=== PATIENT | male | born 1955 | race Caucasian/White ===

== ENCOUNTER 2019-06-13 00:29 | Emergency (ER) | payer MEDICARE ==
[~2019-06-13] VITALS: Ht 175.3 cm; Wt 65.9 kg
[~2019-06-13 00:29] MED LIST: ASPI-496 PO; ATOR40TA78 PO; FERR-51 PO; FOLI-17 PO; LOPE2CAP PO; MULT1TAB60 PO; PANT40TA5 PO; PHOS250T3 PO; THIA100T67 PO
--- NOTE | 2019-06-13 00:47 | NUR ---
Pt arrives via [facility] for SOB. Pt reports cough and SOB that gets worse with the weather. Pt takes vitamins and aspirin. Pt is alert and oriented. NAD. Pt on room air, no increased WOB noted. Lungs clear. Pt in gown. Call light within reach.
--- NOTE | 2019-06-13 01:06 | NUR ---
Lab at bedside for draw. Warm blanket provided. Urinal provided.
[2019-06-13 01:09] LABS: BASOPHILS # (AUTO) 0.16 x10^3/uL (0-0.1); BASOPHILS % (AUTO) 2 % (0-1); EOSINOPHILS # (AUTO) 0.02 x10^3/uL (0-0.4); EOSINOPHILS % (AUTO) 0 % (1-7); LYMPHOCYTES # (AUTO) 1.88 x10^3/uL (1-3.4); LYMPHOCYTES % (AUTO) 18 % (22-44); MD NO; MEAN CORPUSCULAR HEMOGLOBIN 35.1 pg (27.5-34.5); MEAN CORPUSCULAR HGB CONC 33.7 g/dL (33.2-36.2); MEAN CORPUSCULAR VOLUME 104.4 fL (81-97); MEAN PLATELET VOLUME 6.8 fL (7.4-10.4); MONOCYTES # (AUTO) 0.67 x10^3/uL (0.2-0.8); MONOCYTES % (AUTO) 6 % (2-9); NEUTROPHILS # (AUTO) 7.95 x10^3/uL (1.8-6.8); NEUTROPHILS % (AUTO) 75 % (42-75); PLATELET COUNT 501 x10^3/uL (130-400); RED BLOOD COUNT 3.28 x10^6/uL (4.38-5.82)
[2019-06-13 01:19] LABS: ANION GAP 9 mmol/L (5-15); CALCIUM 9.2 mg/dL (8.5-10.1); CHLORIDE 103 mmol/L (98-107)
[2019-06-13 01:42] VITALS: BP 103/67
--- NOTE | 2019-06-13 01:47 | NUR ---
Pt given bus pass for d/c. Pt states "I didn't know the ER sent people home in the middle of the night".
--- NOTE | 2019-06-13 02:08 | NUR ---
Pt alert and ambulatory at time of d/c. Pt edcuated on prescription, home-care, and follow-up. Pt VU. Pt ambulated out of ER.
== END 2019-06-13 02:11 | disposition home or self-care (01) ==
LOC: ED 02:00
DX: R05 Cough (principal); F17.200 Nicotine dependence, unspecified, uncomplicated; Z59.0 Homelessness
CPT/HCPCS: 36415; 71045; 80048; 80307; 85025; 99284

== ENCOUNTER 2019-06-13 17:42 | Emergency (ER) | payer MEDICARE ==
[~2019-06-13] VITALS: Ht 175.3 cm; Wt 65.0 kg
--- NOTE | 2019-06-13 18:15 | NUR ---
PT ALERT AND ORIENTED. SMALL ABRASION ON SCALP. AWAITING CT
--- NOTE | 2019-06-13 18:46 | NUR ---
CT COMPLETED AND RESTING QUIETLY
--- NOTE | 2019-06-13 19:12 | NUR ---
REPORT FROM ZION COWAN. ASSUMING CARE OF PT AT THIS TIME.
--- NOTE | 2019-06-13 19:13 | NUR ---
ALL RESULTS BACK CHART UP FOR RECHECK AWAITING FURTHER ORDERS AT THIS TIME
[2019-06-13 19:19] VITALS: BP 109/59
== END 2019-06-13 20:32 | disposition home or self-care (01) ==
LOC: ED 20:00
DX: R51 Headache (principal); W19.XXXA Unspecified fall, initial encounter; Y93.89 Activity, other specified; Y92.488 Other paved roadways as the place of occurrence of the external cause; Y99.8 Other external cause status
CPT/HCPCS: 70450; 99284

== ENCOUNTER 2019-07-02 21:07 | Emergency (ER) | payer MEDICARE ==
[~2019-07-02] VITALS: Ht 175.3 cm; Wt 67.0 kg
[2019-07-02 22:02] LABS: BASOPHILS # (AUTO) 0.03 x10^3/uL (0-0.1); BASOPHILS % (AUTO) 0 % (0-1); EOSINOPHILS # (AUTO) 0.01 x10^3/uL (0-0.4); EOSINOPHILS % (AUTO) 0 % (1-7); LYMPHOCYTES # (AUTO) 1.09 x10^3/uL (1-3.4); LYMPHOCYTES % (AUTO) 9 % (22-44); MD NO; MEAN CORPUSCULAR HEMOGLOBIN 34.1 pg (27.5-34.5); MEAN CORPUSCULAR HGB CONC 33.8 g/dL (33.2-36.2); MEAN CORPUSCULAR VOLUME 100.9 fL (81-97); MEAN PLATELET VOLUME 6.4 fL (7.4-10.4); MONOCYTES # (AUTO) 1.05 x10^3/uL (0.2-0.8); MONOCYTES % (AUTO) 9 % (2-9); NEUTROPHILS % (AUTO) 82 % (42-75); PLATELET COUNT 371 x10^3/uL (130-400); RED CELL DISTRIBUTION WIDTH 14.4 % (9.4-14.8)
[2019-07-02 22:11] LABS: ALBUMIN 1.9 g/dL (3.4-5.0); ANION GAP 9 mmol/L (5-15); CALCIUM 8.1 mg/dL (8.5-10.1); CHLORIDE 100 mmol/L (98-107); CREATININE 0.35 mg/dL (0.7-1.3)
[2019-07-02 22:15] LABS: TROPONIN I < 0.015 ng/mL (0.000-0.045)
[2019-07-02] MEDS ORDERED: DOXYCYCLINE 100MG TABLET ONE (22:47)
[2019-07-02] MEDS ORDERED: POTASSIUM CHLORIDE 20 MEQ TAB.ER.PRT ONE (22:47)
[2019-07-02 22:53] VITALS: BP 111/70
[2019-07-02] MEDS ORDERED: DOXYCYCLINE 100MG TABLET PO ONE (23:00)
[2019-07-02] MEDS ORDERED: POTASSIUM CHLORIDE 20 MEQ TAB.ER.PRT PO ONE (23:00)
== END 2019-07-02 23:19 | disposition home or self-care (01) ==
LOC: ED 23:08
DX: J18.9 Pneumonia, unspecified organism (principal); E87.6 Hypokalemia; F17.200 Nicotine dependence, unspecified, uncomplicated; R00.0 Tachycardia, unspecified
CPT/HCPCS: 36415; 71045; 80048; 82040; 84484; 85025; 93005; 99285

== ENCOUNTER 2019-07-28 02:09 | Emergency (ER) | payer MEDICARE ==
[~2019-07-28] VITALS: Ht 172.7 cm; Wt 67.0 kg
[2019-07-28 02:15] VITALS: BP 118/70
[2019-07-28] MEDS ORDERED: ACETAMINOPHEN 500 MG TABLET ONE (02:45)
--- NOTE | 2019-07-28 02:53 | NUR ---
PT SPIT PILLS OUT ONTO FLOOR
[2019-07-28] MEDS ORDERED: ACETAMINOPHEN 500 MG TABLET PO ONE (03:00)
--- NOTE | 2019-07-28 03:11 | NUR ---
PT PROVIDED WITH CAB VOUCHER BACK TO [facility].
== END 2019-07-28 03:14 | disposition home or self-care (01) ==
LOC: ED 03:08
DX: G89.29 Other chronic pain (principal); M79.662 Pain in left lower leg; M79.661 Pain in right lower leg; E87.6 Hypokalemia; F17.200 Nicotine dependence, unspecified, uncomplicated
CPT/HCPCS: 99282; 99283

== ENCOUNTER 2019-08-08 07:38 | Inpatient (IN) | payer MEDICARE ==
[~2019-08-08] VITALS: Ht 177.8 cm; Wt 73.0 kg
--- NOTE | 2019-08-08 08:33 | NUR ---
PT IN RADIOLOGY
--- NOTE | 2019-08-08 09:58 | NUR ---
PT RESTING IN [facility], ADDITIONAL LABS AND RAD ORDERED. CALL LIGHT WTHIN REACH
[2019-08-08 10:09] LABS: BASOPHILS # (AUTO) 0.02 x10^3/uL (0-0.1); BASOPHILS % (AUTO) 0 % (0-1); EOSINOPHILS # (AUTO) 0.06 x10^3/uL (0-0.4); EOSINOPHILS % (AUTO) 1 % (1-7); LYMPHOCYTES # (AUTO) 0.86 x10^3/uL (1-3.4); LYMPHOCYTES % (AUTO) 16 % (22-44); MD NO; MEAN CORPUSCULAR HEMOGLOBIN 32.3 pg (27.5-34.5); MEAN CORPUSCULAR HGB CONC 32.6 g/dL (33.2-36.2); MEAN CORPUSCULAR VOLUME 99.1 fL (81-97); MEAN PLATELET VOLUME 6.1 fL (7.4-10.4); MONOCYTES # (AUTO) 0.62 x10^3/uL (0.2-0.8); MONOCYTES % (AUTO) 12 % (2-9); NEUTROPHILS # (AUTO) 3.79 x10^3/uL (1.8-6.8); NEUTROPHILS % (AUTO) 71 % (42-75); PLATELET COUNT 234 x10^3/uL (130-400); RED BLOOD COUNT 3.63 x10^6/uL (4.38-5.82); RED CELL DISTRIBUTION WIDTH 16.6 % (9.4-14.8)
[2019-08-08 10:20] LABS: ALANINE AMINOTRANSFERASE 13 U/L (12-78); ALBUMIN 2.2 g/dL (3.4-5.0); ANION GAP 8 mmol/L (5-15); CALCIUM 8.2 mg/dL (8.5-10.1); CHLORIDE 105 mmol/L (98-107); CREATININE 0.68 mg/dL (0.7-1.3)
[2019-08-08 10:24] LABS: ALKALINE PHOSPHATASE 118 U/L (45-117); BILIRUBIN,TOTAL 0.2 mg/dL (0.2-1.0); TOTAL PROTEIN 5.7 g/dL (6.4-8.2)
[2019-08-08] MEDS ORDERED: SODIUM CHLORIDE FLUSH 10ML SYR IVF ONE (11:00)
[2019-08-08] MEDS ORDERED: POTASSIUM CHLORIDE 40 MEQ in SODIUM CHLORIDE 0.9% 500 ML IV ONE (11:00)
--- NOTE | 2019-08-08 11:32 | NUR ---
IV ESTABLISHED AND [facility] INFUSING @130 ML/H, PT TO BE ADMITTED
[2019-08-08] MEDS ORDERED: PROMETHAZINE 25 MG/ML, 1ML IM PRN (12:00)
[2019-08-08] MEDS ORDERED: ONDANSETRON 2MG/ML, 2ML IVPush PRN (12:00)
[2019-08-08] MEDS ORDERED: LABETALOL 5MG/ML, 20ML IVPush PRN (12:00)
[2019-08-08] MEDS ORDERED: ACETAMINOPHEN 325 MG TABLET PO PRN (12:00)
[2019-08-08] MEDS ORDERED: hydrALAzine 20 MG/ML, 1ML IVPush PRN (12:00)
--- NOTE | 2019-08-08 13:11 | NUR ---
PT RESTING IN [facility], AWAITNIG BED ASSIGNMENT.
[2019-08-08] MEDS ORDERED: NICOTINE 14MG/24 HR PATCH.TD24 ONE (14:51)
[2019-08-08] MEDS ORDERED: HEPARIN 5,000 UNITS/ML, 1ML ONE (14:51)
[2019-08-08] MEDS: HEPARIN 5,000 UNITS/ML, 1ML SQ SCH ×2 (14:57→23:07)
[2019-08-08] MEDS: MULTIVITAMIN 1 TABLET PO SCH (14:57)
[2019-08-08] MEDS: FOLIC ACID 1 MG TABLET PO SCH (14:57)
[2019-08-08] MEDS: THIAMINE 100MG TABLET PO SCH (14:57)
[2019-08-08] MEDS ORDERED: NICOTINE 7 MG/24 HR PATCH.TD24 ONE (15:03)
[2019-08-08 15:23] VITALS: BP 119/63
[2019-08-08] MEDS ORDERED: AMPICILLIN/SULBACTAM 1,500 MG in SODIUM CHLORIDE 0.9% 50 ML IV SCH (15:30)
[2019-08-08] MEDS ORDERED: NS + 20MEQ KCL 1,000 ML IV SCH (15:30)
[2019-08-08] MEDS: NICOTINE 7 MG/24 HR PATCH.TD24 TD SCH (16:01)
[2019-08-08] MEDS ORDERED: MEROPENEM 1 GM in SODIUM CHLORIDE 0.9% 100 ML IV SCH (16:30)
[2019-08-08] MEDS: POTASSIUM CHLORIDE 20 MEQ TAB.ER.PRT PO SCH (16:49)
[2019-08-08 18:52] VITALS: BP 123/75
[2019-08-08 20:34] LABS: HCT (SEDRATE) 33.3 % (39.2-51.8)
[2019-08-08 20:49] LABS: ANION GAP 5 mmol/L (5-15); CHLORIDE 108 mmol/L (98-107)
[2019-08-08 20:56] LABS: CREATININE 0.48 mg/dL (0.7-1.3)
[2019-08-08] MEDS: CLINDAMYCIN PMX 600MG/50ML 50 ML IV SCH (21:05)
[2019-08-09 00:02] VITALS: BP 119/71
[2019-08-09] MEDS: CLINDAMYCIN PMX 600MG/50ML 50 ML IV SCH ×4 (02:12→20:06)
[2019-08-09 05:39] LABS: BASOPHILS # (AUTO) 0.02 x10^3/uL (0-0.1); BASOPHILS % (AUTO) 0 % (0-1); EOSINOPHILS # (AUTO) 0.06 x10^3/uL (0-0.4); EOSINOPHILS % (AUTO) 1 % (1-7); LYMPHOCYTES # (AUTO) 0.88 x10^3/uL (1-3.4); LYMPHOCYTES % (AUTO) 15 % (22-44); MD NO; MEAN CORPUSCULAR HEMOGLOBIN 32.3 pg (27.5-34.5); MEAN CORPUSCULAR VOLUME 97.7 fL (81-97); MEAN PLATELET VOLUME 6.6 fL (7.4-10.4); MONOCYTES # (AUTO) 0.44 x10^3/uL (0.2-0.8); MONOCYTES % (AUTO) 7 % (2-9); NEUTROPHILS # (AUTO) 4.58 x10^3/uL (1.8-6.8); NEUTROPHILS % (AUTO) 77 % (42-75); PLATELET COUNT 212 x10^3/uL (130-400); RED BLOOD COUNT 3.33 x10^6/uL (4.38-5.82); RED CELL DISTRIBUTION WIDTH 16.4 % (9.4-14.8)
[2019-08-09 05:48] LABS: ALANINE AMINOTRANSFERASE 9 U/L (12-78); ALBUMIN 1.9 g/dL (3.4-5.0); ANION GAP 5 mmol/L (5-15); CHLORIDE 108 mmol/L (98-107)
[2019-08-09 05:50] LABS: ALKALINE PHOSPHATASE 81 U/L (45-117); BILIRUBIN,TOTAL 0.2 mg/dL (0.2-1.0); TOTAL PROTEIN 5.3 g/dL (6.4-8.2)
[2019-08-09 07:42] VITALS: BP 103/62
[2019-08-09] MEDS: HEPARIN 5,000 UNITS/ML, 1ML SQ SCH ×3 (07:50→22:31)
[2019-08-09] MEDS: FOLIC ACID 1 MG TABLET PO SCH (09:05)
[2019-08-09] MEDS: POTASSIUM CHLORIDE 20 MEQ TAB.ER.PRT PO SCH ×2 (09:05→16:23)
[2019-08-09] MEDS: THIAMINE 100MG TABLET PO SCH (09:06)
[2019-08-09] MEDS: MULTIVITAMIN 1 TABLET PO SCH (09:06)
[2019-08-09 14:16] VITALS: BP 103/64
[2019-08-09] MEDS: NICOTINE 7 MG/24 HR PATCH.TD24 TD SCH (16:23)
[2019-08-09 19:37] VITALS: BP 90/57
[2019-08-10 02:16] VITALS: BP 116/66
[2019-08-10] MEDS: CLINDAMYCIN PMX 600MG/50ML 50 ML IV SCH ×3 (02:19→14:00)
[2019-08-10 08:00] VITALS: BP 88/54
[2019-08-10] MEDS: FOLIC ACID 1 MG TABLET PO SCH (08:28)
[2019-08-10] MEDS: THIAMINE 100MG TABLET PO SCH (08:28)
[2019-08-10] MEDS: MULTIVITAMIN 1 TABLET PO SCH (08:28)
[2019-08-10] MEDS: POTASSIUM CHLORIDE 20 MEQ TAB.ER.PRT PO SCH ×2 (08:28→16:52)
[2019-08-10] MEDS: HEPARIN 5,000 UNITS/ML, 1ML SQ SCH ×2 (08:28→15:00)
[2019-08-10 12:15] VITALS: BP 107/67
[2019-08-10] MEDS ORDERED: SULF1TAB24 PO (14:54)
[2019-08-10] MEDS: NICOTINE 7 MG/24 HR PATCH.TD24 TD SCH (16:52)
== END 2019-08-10 17:36 | disposition home or self-care (01) | DRG 602 ==
LOC: ED 09:11 → EDIP 11:33 → 4WST 14:32
PROVIDERS: ADMIT Internal Medicine; ATTEND Internal Medicine
DX: L03.115 Cellulitis of right lower limb (principal); E43 Unspecified severe protein-calorie malnutrition; L03.116 Cellulitis of left lower limb; E87.6 Hypokalemia; E88.09 Other disorders of plasma-protein metabolism, not elsewhere classified; I25.10 Atherosclerotic heart disease of native coronary artery without angina pectoris; Z72.89 Other problems related to lifestyle; W10.1XXA Fall (on)(from) sidewalk curb, initial encounter; R73.9 Hyperglycemia, unspecified; M16.11 Unilateral primary osteoarthritis, right hip; Z91.14 Patient's other noncompliance with medication regimen; Z71.6 Tobacco abuse counseling; F17.200 Nicotine dependence, unspecified, uncomplicated
CPT/HCPCS: 36415; 71045; 80048; 80053; 80307; 83036; 83735; 83880; 84145; 85025; 85651; 86140; 86803; 87040; 87340; 87806; 93005; 93970; 96374; G0378; J1644; J2185; J3480; G0475; J7040

== ENCOUNTER 2019-08-10 20:17 | Emergency (ER) | payer MEDICARE ==
[~2019-08-10] VITALS: Ht 177.8 cm; Wt 70.0 kg
[~2019-08-10 20:17] MED LIST changes: +SULF1TAB24 PO
[2019-08-10 20:20] VITALS: BP 110/59
== END 2019-08-10 20:44 ==
LOC: ED 20:40
DX: M25.551 Pain in right hip (principal); G89.29 Other chronic pain; X58.XXXA Exposure to other specified factors, initial encounter; Y93.89 Activity, other specified; Y92.89 Other specified places as the place of occurrence of the external cause; Y99.8 Other external cause status
CPT/HCPCS: 99283

== ENCOUNTER 2019-08-11 02:55 | Emergency (ER) | payer MEDICARE ==
[~2019-08-11] VITALS: Ht 177.8 cm; Wt 74.0 kg
[2019-08-11 02:56] VITALS: BP 142/88
== END 2019-08-11 03:20 | disposition left against medical advice (07) ==
LOC: ED 03:14
DX: M25.559 Pain in unspecified hip (principal); Z53.21 Procedure and treatment not carried out due to patient leaving prior to being seen by health care provider

== ENCOUNTER 2019-08-20 14:22 | Emergency (ER) | payer MEDICARE ==
[~2019-08-20] VITALS: Ht 177.8 cm; Wt 72.7 kg
--- NOTE | 2019-08-20 14:47 | NUR ---
BEDSIDE REPORT FROM PABLO COWAN, PT RESTING IN [facility] ON MONITOR. CALL LIGHT WITHIN REACH.
[2019-08-20 16:45] VITALS: BP 131/67
--- NOTE | 2019-08-20 17:01 | NUR ---
PT REQUESTING TO SPEAK TO MD ABOUT LEGS, MD TO BEDSIDE TO ASSESS PTS LEGS. PER MD NO TREATMENT REQUIRED AT THIS TIME. PT VERY UPSET AND BEGAN YELLING AT RN. PT GOT DRESSED AND RN TO GIVE PT TAXI VOUCHER.
--- NOTE | 2019-08-20 17:21 | NUR ---
PT GIVEN TAXI VOUCHER
== END 2019-08-20 17:24 | disposition home or self-care (01) ==
LOC: ED 15:42
DX: B34.9 Viral infection, unspecified (principal); F17.200 Nicotine dependence, unspecified, uncomplicated; I45.2 Bifascicular block; I25.2 Old myocardial infarction
CPT/HCPCS: 71045; 93005; 99283

== ENCOUNTER 2019-08-29 05:15 | Emergency (ER) | payer MEDICARE ==
[~2019-08-29] VITALS: Ht 175.3 cm; Wt 75.0 kg
--- NOTE | 2019-08-29 05:51 | NUR ---
PT RESTING ON GURNEY, PROVIDED PT WITH GOWN, CALL LIGHT WITHIN REACH. AWAITING ERP EVAL AND ORDERS
--- NOTE | 2019-08-29 06:33 | NUR ---
URINE SAMPLE SENT
[2019-08-29 06:39] VITALS: BP 127/66
[2019-08-29 06:40] LABS: BASOPHILS # (AUTO) 0.03 x10^3/uL (0-0.1); BASOPHILS % (AUTO) 0 % (0-1); EOSINOPHILS # (AUTO) 0.13 x10^3/uL (0-0.4); EOSINOPHILS % (AUTO) 2 % (1-7); LYMPHOCYTES # (AUTO) 1.42 x10^3/uL (1-3.4); LYMPHOCYTES % (AUTO) 19 % (22-44); MD NO; MEAN CORPUSCULAR HEMOGLOBIN 30.6 pg (27.5-34.5); MEAN CORPUSCULAR VOLUME 92.9 fL (81-97); MEAN PLATELET VOLUME 6.1 fL (7.4-10.4); MONOCYTES # (AUTO) 0.95 x10^3/uL (0.2-0.8); MONOCYTES % (AUTO) 13 % (2-9); NEUTROPHILS # (AUTO) 4.81 x10^3/uL (1.8-6.8); NEUTROPHILS % (AUTO) 66 % (42-75); PLATELET COUNT 391 x10^3/uL (130-400); RED BLOOD COUNT 3.53 x10^6/uL (4.38-5.82); RED CELL DISTRIBUTION WIDTH 15.9 % (9.4-14.8)
[2019-08-29 06:42] LABS: MICROSCOPIC NOT IND
[2019-08-29 06:43] LABS: ALANINE AMINOTRANSFERASE 13 U/L (12-78); ALBUMIN 2.3 g/dL (3.4-5.0); ANION GAP 7 mmol/L (5-15); CALCIUM 8.6 mg/dL (8.5-10.1); CHLORIDE 107 mmol/L (98-107); CREATININE 0.49 mg/dL (0.7-1.3)
[2019-08-29 06:46] LABS: CULTURE INDICATED? NO
[2019-08-29 06:47] LABS: ALKALINE PHOSPHATASE 82 U/L (45-117); BILIRUBIN,TOTAL 0.2 mg/dL (0.2-1.0); TOTAL PROTEIN 6.2 g/dL (6.4-8.2)
--- NOTE | 2019-08-29 07:07 | NUR ---
REPORT GIVEN TO CAMRYN SANTAMARIA
--- NOTE | 2019-08-29 07:09 | NUR ---
RECEIVED REPORT FROM CAMRYN HOLLIS. PT LAYING IN BED, CXR TO BEDSIDE.
--- NOTE | 2019-08-29 08:15 | NUR ---
assist rn: PT YELLING AT PRIMARY RN DURING DC INSTRUCTION. PT STATED HE HAS TO USE THE BATHROOM BEFORE HE LEAVES. PT ASSISTED WITH GETTING DRESSED, AMBULATING STEADILY WITH WALKER. PT ASKING REPEATEDLY WHERE THE BATHROOM IS. THIS RN EXPLAINED EACH TIME WHERE BATHROOM IS, THEN WHERE HE NEEDS TO CHECK OUT. PT GETTING UPSET, STATED RN NEEDED TO, "TALK SLOWER". PT ESCORTED TO BATHROOM BY DC DESK. PT ASKING HOW HE IS GETTING HOME, PT OFFERED TAXI VOUCHER FOR [facility] TRANSPORT TO [facility]. [employer] CALLED, STATED TAXI ON THE WAY.
== END 2019-08-29 08:09 | disposition home or self-care (01) ==
LOC: ED 05:45
DX: R32 Unspecified urinary incontinence (principal); I45.10 Unspecified right bundle-branch block; I44.4 Left anterior fascicular block; I21.9 Acute myocardial infarction, unspecified; F17.200 Nicotine dependence, unspecified, uncomplicated; M19.90 Unspecified osteoarthritis, unspecified site
CPT/HCPCS: 36415; 71045; 80053; 81003; 83880; 85025; 93005; 99285

== ENCOUNTER 2020-01-03 07:58 | Emergency (ER) | payer MEDICARE ==
[~2020-01-03] VITALS: Ht 182.9 cm; Wt 69.6 kg
[~2020-01-03 07:58] MED LIST changes: +MULT-449 PO; -MULT1TAB60 PO
--- NOTE | 2020-01-03 08:06 | NUR ---
Pt presents to ed c/o epigastric pain this am. States has had pain "for months now.... [place] Denies n/v/d. Denies gu s/s. States "i do burp acid sometimes." Hx of mi and open heart sx r/t. All monitoring applied. VSS. Call light within reach. Pa at bedside for initial assessment.
--- NOTE | 2020-01-03 08:23 | NUR ---
PT aware of need of ua. States unable to provide at this time.
[2020-01-03] MEDS ORDERED: SODIUM CHLORIDE 0.9% 1,000ML IVBOLUS ONE (08:30)
--- NOTE | 2020-01-03 08:36 | NUR ---
No immediate needs from pt. Awaiting test results.
[2020-01-03 08:37] LABS: BASOPHILS # (AUTO) 0.01 x10^3/uL (0-0.1); BASOPHILS % (AUTO) 0 % (0-1); EOSINOPHILS # (AUTO) 0.01 x10^3/uL (0-0.4); EOSINOPHILS % (AUTO) 0 % (1-7); LYMPHOCYTES # (AUTO) 0.38 x10^3/uL (1-3.4); LYMPHOCYTES % (AUTO) 3 % (22-44); MD NO; MEAN CORPUSCULAR HEMOGLOBIN 29.7 pg (27.5-34.5); MEAN CORPUSCULAR HGB CONC 33.1 g/dL (33.2-36.2); MEAN CORPUSCULAR VOLUME 89.7 fL (81-97); MEAN PLATELET VOLUME 7.5 fL (7.4-10.4); MONOCYTES # (AUTO) 0.83 x10^3/uL (0.2-0.8); MONOCYTES % (AUTO) 7 % (2-9); NEUTROPHILS % (AUTO) 90 % (42-75); PLATELET COUNT 124 x10^3/uL (130-400); RED BLOOD COUNT 5.23 x10^6/uL (4.38-5.82); RED CELL DISTRIBUTION WIDTH 15.5 % (9.4-14.8)
[2020-01-03 08:44] LABS: ALANINE AMINOTRANSFERASE 14 U/L (12-78); ALBUMIN 3.1 g/dL (3.4-5.0); ANION GAP 9 mmol/L (5-15); CALCIUM 8.7 mg/dL (8.5-10.1); CHLORIDE 91 mmol/L (98-107); CREATININE 0.66 mg/dL (0.7-1.3)
[2020-01-03 08:46] LABS: ALKALINE PHOSPHATASE 86 U/L (45-117); BILIRUBIN,TOTAL 0.7 mg/dL (0.2-1.0); TOTAL PROTEIN 6.9 g/dL (6.4-8.2)
--- NOTE | 2020-01-03 08:48 | NUR ---
Pt bedside report to Mary lofton.
--- NOTE | 2020-01-03 08:50 | NUR ---
ASSUMED CARE OF PT AFTER RECEIVING REPORT FROM CARIDAD COWAN
[2020-01-03] MEDS ORDERED: POTASSIUM CHLORIDE 20 MEQ TAB.ER.PRT PO ONE (09:00)
--- NOTE | 2020-01-03 09:06 | NUR ---
PT TO CT VIA [facility]
[2020-01-03] MEDS ORDERED: OMNIPAQUE 350 MG/ML, 100ML BOTTLE ONE (09:17)
[2020-01-03] MEDS ORDERED: POTASSIUM CHLORIDE 20 MEQ TAB.ER.PRT ONE (09:25)
[2020-01-03 09:26] LABS: MICROSCOPIC AUTO
[2020-01-03] MEDS ORDERED: PANTOPRAZOLE 40 MG IV IVPush ONE (09:30)
[2020-01-03] MEDS ORDERED: PANTOPRAZOLE 40 MG IV ONE (09:51)
[2020-01-03 10:12] VITALS: BP 145/78
--- NOTE | 2020-01-03 10:12 | NUR ---
PT GIVEN DISCHARGE INCLUDING REFERRAL TO GI AND PRESCRIPTIONS. AMBULATED TO BATHROOM AND THEN TO DISCHARGE WITH USE OF WALKER WITHOUT ASSISTANCE
== END 2020-01-03 10:21 | disposition home or self-care (01) ==
LOC: ED 08:40
DX: G89.29 Other chronic pain (principal); R10.32 Left lower quadrant pain; R10.31 Right lower quadrant pain; K21.0 Gastro-esophageal reflux disease with esophagitis; E87.6 Hypokalemia; E86.1 Hypovolemia
CPT/HCPCS: 36415; 74177; 80053; 81001; 83690; 85025; 96361; 96374; 99285; C9113; J7030; Q9967